=== PATIENT | male | born 1985 | race Caucasian/White ===

== ENCOUNTER 2017-02-05 19:59 | Emergency (ER) | payer SELFPAY ==
[~2017-02-05] VITALS: Ht 160 cm; Wt 84.0 kg
[2017-02-05] MEDS ORDERED: KETOROLAC 60MG/2ML VIAL IM ONE (22:30)
[2017-02-05 23:45] VITALS: BP 110/54
== END 2017-02-05 23:45 | disposition home or self-care (01) ==
LOC: ER 19:59
DX: M25.511 Pain in right shoulder (principal); F12.10 Cannabis abuse, uncomplicated; F17.210 Nicotine dependence, cigarettes, uncomplicated
CPT/HCPCS: 73030; 96372; 99284; J1885

== ENCOUNTER 2017-06-01 09:00 | Emergency (ER) | payer SELFPAY ==
[~2017-06-01] VITALS: Ht 160 cm; Wt 86.0 kg
[2017-06-01] MEDS ORDERED: KETOROLAC 60MG/2ML VIAL IM ONE (09:30)
[2017-06-01 12:25] VITALS: BP 122/69
== END 2017-06-01 13:04 | disposition home or self-care (01) ==
LOC: ER 09:41
DX: M79.642 Pain in left hand (principal); M79.641 Pain in right hand
CPT/HCPCS: 73130; 82962; 96372; 99284; J1885

== ENCOUNTER 2017-07-19 20:35 | Emergency (ER) | payer SELFPAY ==
[~2017-07-19] VITALS: Ht 160 cm; Wt 76.3 kg
[2017-07-19 22:20] VITALS: BP 120/60
== END 2017-07-19 22:20 | disposition home or self-care (01) ==
LOC: ER 21:19
DX: L25.9 Unspecified contact dermatitis, unspecified cause (principal); F12.10 Cannabis abuse, uncomplicated
CPT/HCPCS: 99282